=== PATIENT | female | born 1985 | race Hispanic/Latino ===

== ENCOUNTER 2017-01-03 01:20 | Emergency (ER) | payer MEDICAID ==
[2017-01-03 02:42] VITALS: BP 118/90
[2017-01-03 03:14] LABS: Hematocrit 46.1 % (30.3-42.9); Hemoglobin 15.5 gm/dl (10.1-14.3); Mean Corpuscular HGB Conc 34 % (30-34); Mean Corpuscular Hemoglobin 32 pg (28-32); Mean Corpuscular Volume 94 fl (79-97); Platelet Count 272 K/mm3 (140-440); Red Blood Count 4.92 M/mm3 (3.65-5.03); White Blood Count 13.8 K/mm3 (4.5-11.0)
[2017-01-03 03:31] LABS: Bilirubin,Urine NEG (Negative); Blood,Urine NEG (Negative); Ketones,Urine NEG (Negative); Leukocyte Esterase,Urine TR (Negative); Mucus,Urine FEW /HPF; Nitrite,Urine NEG (Negative); Protein,Urine <15 mg/dL mg/dL (Negative); RBC,Urine < 1.0 /HPF (0.0-6.0); Urobilinogen,Urine < 2.0 mg/dL (<2.0)
[2017-01-03 03:35] LABS: Alanine Aminotransferase 30 units/L (7-56); Albumin 4.6 g/dL (3.9-5); Albumin/Globulin Ratio 1.7 %; Alkaline Phosphatase 84 units/L (35-129); Anion Gap 18 mmol/L; BUN/Creatinine Ratio 13.33; Blood Urea Nitrogen 8 mg/dL (7-17); Calcium 9.4 mg/dL (8.4-10.2); Carbon Dioxide 23 mmol/L (22-30); Chloride 101.7 mmol/L (98-107); Glucose 90 mg/dL (65-100); Lipase 27 units/L (13-60); Potassium 4.3 mmol/L (3.6-5.0); Sodium 138 mmol/L (137-145); Total Protein 7.3 g/dL (6.3-8.2)
[2017-01-03 04:30] LABS: Basophils % (Manual) 0 % (0.0-1.8); Blastocytes % (Manual) 0 %; Diff Status Complete; Platelet Estimate Consistent w Auto; RBC Morphology Normal
== END 2017-01-03 17:45 | disposition left against medical advice (07) ==
LOC: ED 01:20
DX: R10.9 Unspecified abdominal pain (principal); M54.9 Dorsalgia, unspecified; Z53.21 Procedure and treatment not carried out due to patient leaving prior to being seen by health care provider
CPT/HCPCS: 36415; 80053; 81001; 83690; 84702; 85007; 85025; 86850; 86900; 86901

== ENCOUNTER 2017-04-28 20:07 | Emergency (ER) | payer MEDICAID ==
[2017-04-28 21:09] LABS: Bacteria,Urine 1+ /HPF (Negative); Bilirubin,Urine NEG (Negative); Blood,Urine NEG (Negative); Ketones,Urine NEG (Negative); Leukocyte Esterase,Urine NEG (Negative); Mucus,Urine FEW /HPF; Nitrite,Urine NEG (Negative); Protein,Urine <15 mg/dL mg/dL (Negative); RBC,Urine < 1.0 /HPF (0.0-6.0); Urobilinogen,Urine < 2.0 mg/dL (<2.0); WBC,Urine < 1.0 /HPF (0.0-6.0)
[2017-04-28 21:11] LABS: Urine Drugs of Abuse Note Disclamer
[2017-04-28] MEDS ORDERED: ZOFRAN IV ONE (21:12)
[2017-04-28 21:13] LABS: Basophils % (Auto) 0.4 % (0.0-1.8); Eosinophils % (Auto) 1.3 % (0.0-4.3); Hematocrit 39.9 % (30.3-42.9); Hemoglobin 13.5 gm/dl (10.1-14.3); Mean Corpuscular HGB Conc 34 % (30-34); Mean Corpuscular Hemoglobin 32 pg (28-32); Mean Corpuscular Volume 95 fl (79-97); Platelet Count 239 K/mm3 (140-440); Red Blood Count 4.21 M/mm3 (3.65-5.03); Red Cell Distribution Width 12.7 % (13.2-15.2); White Blood Count 10.6 K/mm3 (4.5-11.0)
[2017-04-28] MEDS ORDERED: MORPHINE IV ONE ×2 (21:13→23:34)
[2017-04-28] MEDS ORDERED: TORADOL IV ONE (21:13)
--- NOTE | 2017-04-28 21:16 | Emergency Department Report ---
HPI - General Chief Complaint: Abdominal Pain Time Seen by Provider: 04/28/17 20:59 - HPI HPI: Room 8 Patient is a 31-year-old female presenting with chief complaint abdominal pain. The patient states past 5 days she has had pain in the left flank and left lower quadrant has been constant and sharp in nature. Patient states she's had difficulty urinating since last night. The patient is to nausea and vomiting but denies fever. Patient denies vaginal discharge or abnormal vaginal bleeding. The patient currently gives her pain score of 9/10. The patient states it feels similar to previous bouts of renal colic Location: Left flank Duration: 5 days Quality: Sharp Severity: 9/10 Modifying factors: [see above] Context: [see above] Mode of transportation: [not driving] ED Past Medical Hx - Past Medical History Previous Medical History?: Yes Hx Kidney Stones: Yes Additional medical history: Left ovarian cyst. endometreosis. mvp - Surgical History Past Surgical History?: Yes Additional Surgical History: cyst removed, ablation for Mitral valve prolapse - Family History Family history: no significant - Social History Smoking Status: Current Every Day Smoker (4 cigarettes daily) Substance Use Type: None (denies illicit drug use), Prescribed - Medications Home Medications: Home Medications Medication Instructions Recorded Confirmed Last Taken Type Hydrocodone Bit/Acetaminophen 1 each PO Q6H PRN #20 tablet 06/22/13 11/14/1311/07 Rx [Lortab 10-500 mg] HYDROcodone/APAP 5-325 [[place] 2 each PO Q6HR PRN #30 tablet 11/28/13 Unknown Rx 5/325 mg] traMADol [Ultram 50 MG tab] 50 mg PO Q6HR PRN #20 tablet 08/04/14 Unknown Rx Fluticasone [Flonase] 1 spray NS QDAY #1 bottle 10/29/16 Unknown Rx Naproxen [Naprosyn] 500 mg PO BID #30 tablet 10/29/16 Unknown Rx Ondansetron [Zofran Odt] 4 mg PO TID #21 tab.rapdis 10/29/16 Unknown Rx Sulfamethoxazole/Trimethoprim 1 each PO BID #6 tablet 10/29/16 Unknown Rx [Bactrim DS TAB] methOCARBAMOL [Robaxin TAB] 500 mg PO Q6H PRN #14 tablet 10/29/16 Unknown Rx Doxycycline [Vibramycin CAP] 100 mg PO BID #20 capsule 11/01/16 Unknown Rx Promethazine [Phenergan TAB] 25 mg PO Q8HR PRN #20 tab 11/01/16 Unknown Rx Diphenoxylate HCl/Atropine 2 each PO QID PRN #20 tablet 04/28/17 Unknown Rx [Lomotil 2.5-0.025 mg Tablet] Famotidine [Pepcid] 20 mg PO BID #20 tablet 04/28/17 Unknown Rx Promethazine [Phenergan TAB] 25 mg PO Q6HR PRN #20 tab 04/28/17 Unknown Rx Promethazine [Phenergan] 25 mg NC Q6HR PRN #10 supp.rect 04/28/17 Unknown Rx traMADol [Ultram] 50 mg PO Q6HR PRN #10 tablet 04/28/17 Unknown Rx ED Review of Systems ROS: Stated complaint: ABD PAIN Other details as noted in HPI Comment: All other systems reviewed and negative Eyes: denies: eye pain, eye discharge, vision change ENT: denies: ear pain, throat pain Respiratory: denies: cough, shortness of breath, wheezing Cardiovascular: denies: chest pain, palpitations Endocrine: no symptoms reported Gastrointestinal: abdominal pain, nausea, vomiting, diarrhea Genitourinary: denies: urgency, dysuria, discharge Musculoskeletal: back pain. denies: joint swelling, arthralgia Skin: denies: rash, lesions Neurological: denies: headache, weakness, paresthesias Psychiatric: denies: anxiety, depression Hematological/Lymphatic: denies: easy bleeding, easy bruising Physical Exam - Physical Exam Vital Signs: Vital Signs 04/28/17 20:35 Temperature 98.1 F Pulse Rate 97 H Respiratory 20 Rate Blood Pressure 140/101 O2 Sat by Pulse 100 Oximetry Physical Exam: GENERAL: The patient is well-developed well-nourished female lying on stretcher not appearing to be in acute distress. [] HEENT: Normocephalic. Atraumatic. Extraocular motions are intact. Patient has moist mucous membranes. NECK: Supple. Trachea midline CHEST/LUNGS: Clear to auscultation. There is no respiratory distress noted. HEART/CARDIOVASCULAR: Regular. There is no tachycardia. There is no gallop rub or murmur. ABDOMEN: Abdomen is soft, with tenderness to palpation in the left upper quadrant, left lower quadrant and suprapubic region. Patient has normal bowel sounds. There is no abdominal distention. SKIN: There is no rash. There is no edema. There is no diaphoresis. NEURO: The patient is awake, alert, and oriented. The patient is cooperative. The patient has normal speech MUSCULOSKELETAL: There is left CVA tenderness. There is no evidence of acute injury. ED Course Vital Signs 04/28/17 20:35 Temperature 98.1 F Pulse Rate 97 H Respiratory 20 Rate Blood Pressure 140/101 O2 Sat by Pulse 100 Oximetry ED Medical Decision Making - Lab Data Result diagrams: 04/28/17 20:50 04/28/17 20:50 Laboratory Tests 04/28/17 04/28/17 04/28/17 20:39 20:50 20:50 WBC 10.6 RBC 4.21 Hgb 13.5 Hct 39.9 MCV 95 MCH 32 MCHC 34 RDW 12.7 L Plt Count 239 Lymph % (Auto) 36.8 H [place] % (Auto) 8.1 H Eos % (Auto) 1.3 Baso % (Auto) 0.4 Lymph # 3.9 [place] # 0.9 H Eos # 0.1 Baso # 0.0 Seg Neutrophils % 53.4 Seg Neutrophils # 5.7 Sodium 136 L Potassium 4.2 Chloride 103.9 Carbon Dioxide 19 L Anion Gap 17 BUN 9 Creatinine 0.6 L Estimated GFR > 60 BUN/Creatinine Ratio 15.00 Glucose 83 Calcium 8.3 L Total Bilirubin 0.20 AST 20 ALT 28 Alkaline Phosphatase 73 Total Protein 6.5 Albumin 3.6 L Albumin/Globulin Ratio 1.2 Lipase 30 HCG, Qual Urine Color Yellow Urine Turbidity Clear Urine pH 5.0 Ur Specific [place] 1.025 Urine Protein <15 mg/dl Urine Glucose (UA) Neg Urine Ketones Neg Urine Blood Neg Urine Nitrite Neg Urine Bilirubin Neg Urine Urobilinogen < 2.0 Ur Leukocyte Esterase Neg Urine WBC (Auto) < 1.0 Urine RBC (Auto) < 1.0 Urine Bacteria (Auto) 1+ Urine Mucus Few Urine Opiates Screen Urine Methadone Screen Ur Barbiturates Screen Ur Phencyclidine Scrn Ur Amphetamines Screen U Benzodiazepines Scrn Urine Cocaine Screen U Marijuana (THC) Screen Drugs of Abuse Note 04/28/17 04/28/17 20:50 21:08 WBC RBC Hgb Hct MCV MCH MCHC RDW Plt Count Lymph % (Auto) [place] % (Auto) Eos % (Auto) Baso % (Auto) Lymph # [place] # Eos # Baso # Seg Neutrophils % Seg Neutrophils # Sodium Potassium Chloride Carbon Dioxide Anion Gap BUN Creatinine Estimated GFR BUN/Creatinine Ratio Glucose Calcium Total Bilirubin AST ALT Alkaline Phosphatase Total Protein Albumin Albumin/Globulin Ratio Lipase HCG, Qual Negative Urine Color Urine Turbidity Urine pH Ur Specific [place] Urine Protein Urine Glucose (UA) Urine Ketones Urine Blood Urine Nitrite Urine Bilirubin Urine Urobilinogen Ur Leukocyte Esterase Urine WBC (Auto) Urine RBC (Auto) Urine Bacteria (Auto) Urine Mucus Urine Opiates Screen Presumptive positive Urine Methadone Screen Presumptive negative Ur Barbiturates Screen Presumptive negative Ur Phencyclidine Scrn Presumptive negative Ur Amphetamines Screen Presumptive negative U Benzodiazepines Scrn Presumptive positive Urine Cocaine Screen Presumptive negative U Marijuana (THC) Screen Presumptive negative Drugs of Abuse Note Disclamer - Radiology Data Radiology results: report reviewed (CT abdomen and pelvis), image reviewed (CT abdomen and pelvis) CT abdomen and pelvis (read by radiologist)-no acute intra-abdominal or pelvic pathology - Differential Diagnosis renal colic, pyelonephritis, UTI, diverticulitis Critical care attestation.: If time is entered above; I have spent that time in minutes in the direct care of this critically ill patient, excluding procedure time. ED Disposition Clinical Impression: Acute gastroenteritis, Abdominal pain Disposition: [id number] TO HOME OR SELFCARE Is pt being admited?: No Does the pt Need Aspirin: No Condition: Stable Instructions: Abdominal Pain (ED) Additional Instructions: Return to the emergency department immediately should you develop worsening symptoms, fever, inability to tolerate food or liquid or any other concerns. Prescriptions: Diphenoxylate HCl/Atropine [Lomotil 2.5-0.025 mg Tablet] 2 each PO QID PRN #20 tablet PRN Reason: Diarrhea Famotidine [Pepcid] 20 mg PO BID #20 tablet Promethazine [Phenergan TAB] 25 mg PO Q6HR PRN #20 tab PRN Reason: Nausea Promethazine [Phenergan] 25 mg NC Q6HR PRN #10 supp.rect PRN Reason: Vomiting traMADol [Ultram] 50 mg PO Q6HR PRN #10 tablet PRN Reason: Pain Referrals: PRIMARY CARE, [Primary Care Provider] - 3-5 Days MARIA ELENA RODRIGUEZ MD [Staff Physician] - 3-5 Days (Dr. Rodriguez is a master steam yacht. Please follow up with him for further evaluation) Time of Disposition: 23:36
[2017-04-28 21:22] LABS: Alanine Aminotransferase 28 units/L (7-56); Albumin 3.6 g/dL (3.9-5); Albumin/Globulin Ratio 1.2 %; Alkaline Phosphatase 73 units/L (35-129); Anion Gap 17 mmol/L; Blood Urea Nitrogen 9 mg/dL (7-17); Calcium 8.3 mg/dL (8.4-10.2); Carbon Dioxide 19 mmol/L (22-30); Chloride 103.9 mmol/L (98-107); Glucose 83 mg/dL (65-100); Lipase 30 units/L (13-60); Potassium 4.2 mmol/L (3.6-5.0); Sodium 136 mmol/L (137-145); Total Protein 6.5 g/dL (6.3-8.2)
--- NOTE | 2017-04-28 22:26 | Cat Scan Report ---
FINAL REPORT PROCEDURE: CT ABDOMEN PELVIS WO CON TECHNIQUE: Computerized axial tomography of the abdomen and pelvis was performed without intravenous contrast. This study is performed without intravascular contrast material and its sensitivity for abdominal and pelvic pathology, including neoplasms, inflammation, abscess, free fluid, thrombosis, arterial dissection and infarction, is reduced compared with a contrast enhanced study. HISTORY: left flank pain COMPARISON: No prior studies are available for comparison. FINDINGS: Visualized lower thorax: No significant abnormality. Liver: Normal size and attenuation. Spleen: Normal size and attenuation. Gallbladder and biliary system: Normal. Pancreas: Normal. Adrenals: Normal. Kidneys: Normal. GI tract: Normal. Appendix is normal. Lymph nodes and mesentery: Normal. Vasculature: Normal. Bladder: Normal. Reproductive organs: Uterus is retroverted. Peritoneum: No free fluid. Musculoskeletal structures: Bilateral spondylolysis is noted. Other: A small uncomplicated umbilical hernia is noted. IMPRESSION: No acute intra-abdominal or pelvic pathology.
[2017-04-28] MEDS ORDERED: REGLAN IV ONE (23:34)
[2017-04-29 00:35] VITALS: BP 120/70
== END 2017-04-29 00:37 | disposition home or self-care (01) ==
LOC: ED 20:07
DX: K52.9 Noninfective gastroenteritis and colitis, unspecified (principal); F17.200 Nicotine dependence, unspecified, uncomplicated; R39.198 Other difficulties with micturition
CPT/HCPCS: 36415; 51701; 74176; 80053; 80307; 81001; 83690; 84703; 85025; 96374; 96375; 96376; 99284; J1885; J2270; J2405; J2765

== ENCOUNTER 2019-06-05 16:46 | Emergency (ER) | payer MEDICAID ==
--- NOTE | 2019-06-05 17:15 | Event Note ---
ED Screening Note Date of service: 06/05/19 Time: 17:13 ED Screening Note: 33 y/o female comes in for low back pain and abdominal with urnary frequency and urgency and dysuria times 1 week. Pain /. LMP Depo This initial assessment/diagnostic orders/clinical plan/treatment(s) is/are sub ject to change based on patients health status, clinical progression and re- assessment by fellow clinical providers in the ED. Further treatment and workup at subsequent clinical providers discretion. Patient/guardian urged not to elope from the ED as their condition may be serious if not clinically assessed and managed. Initial orders include:
[2019-06-05] MEDS ORDERED: ONDANSETRON 4 MG ODT TAB PO ONE (17:41)
[2019-06-05] MEDS ORDERED: CYCLOBENZAPRINE 10 MG TAB PO ONE (17:41)
--- NOTE | 2019-06-05 17:51 | Emergency Department Report ---
ED Female HPI - General Chief complaint: Abdominal Pain Stated complaint: ABD/BACK PAIN Time Seen by Provider: 06/05/19 17:13 Source: patient Mode of arrival: Ambulatory Limitations: No Limitations - History of Present Illness Initial comments: Patient is a 33-year-old female presents emergency room with complaints of lower back and suprapubic abdominal discomfort that began a week ago. She has associated urinary frequency and pressure upon urinating. Denies any vomiting, diarrhea, chills, fever, vaginal discharge. States that she is on Depo-Provera as control. denies any allergies to medications. - Related Data Previous Rx's Medication Instructions Recorded Last Taken Type Hydrocodone Bit/Acetaminophen 1 each PO Q6H PRN #20 tablet 06/22/13 11/27/13 Rx [Lortab 10-500 mg] HYDROcodone/APAP 5-325 [[place] 2 each PO Q6HR PRN #30 tablet 11/28/13 Unknown Rx 5/325 mg] traMADol [Ultram 50 MG tab] 50 mg PO Q6HR PRN #20 tablet 08/04/14 Unknown Rx Fluticasone [Flonase] 1 spray NS QDAY #1 bottle 10/29/16 Unknown Rx Naproxen [Naprosyn] 500 mg PO BID #30 tablet 10/29/16 Unknown Rx Ondansetron [Zofran Odt] 4 mg PO TID #21 tab.rapdis 10/29/16 Unknown Rx Sulfamethoxazole/Trimethoprim 1 each PO BID #6 tablet 10/29/16 Unknown Rx [Bactrim DS TAB] methOCARBAMOL [Robaxin TAB] 500 mg PO Q6H PRN #14 tablet 10/29/16 Unknown Rx DOXYCYCLINE Hyclate [Vibramycin 100 mg PO BID #20 capsule 11/01/16 Unknown Rx CAP] Promethazine [Phenergan TAB] 25 mg PO Q8HR PRN #20 tab 11/01/16 Unknown Rx Diphenoxylate HCl/Atropine 2 each PO QID PRN #20 tablet 04/28/17 Unknown Rx [Lomotil 2.5-0.025 mg Tablet] Famotidine [Pepcid] 20 mg PO BID #20 tablet 04/28/17 Unknown Rx Promethazine [Phenergan TAB] 25 mg PO Q6HR PRN #20 tab 09/02/17 Unknown Rx Promethazine [Phenergan] 25 mg [place] Q6HR PRN #10 supp.rect 04/28/17 Unknown Rx traMADol [Ultram] 50 mg PO Q6HR PRN #10 tablet 04/28/17 Unknown Rx Cyclobenzaprine [Flexeril] 10 mg PO QHS PRN #10 tablet 06/05/19 Unknown Rx Naproxen [EC-Naproxen] 500 mg PO BID PRN #14 tablet. 06/05/19 Unknown Rx Allergies Allergy/AdvReac Type Severity Reaction Status Date / Time No Known Allergies Allergy Verified 08/16/13 17:39 ED Review of Systems ROS: Stated complaint: ABD/BACK PAIN Other details as noted in HPI Comment: All other systems reviewed and negative ED Past Medical Hx - Past Medical History Previous Medical History?: Yes Hx Kidney Stones: Yes Additional medical history: Left ovarian cyst. endometreosis. mvp - Surgical History Past Surgical History?: Yes Additional Surgical History: cyst removed, ablation for Mitral valve prolapse - Social History Smoking Status: Current Every Day Smoker Substance Use Type: None - Medications Home Medications: Home Medications Medication Instructions Recorded Confirmed Last Taken Type Hydrocodone Bit/Acetaminophen 1 each PO Q6H PRN #20 tablet 06/22/13 11/14/13 11/27/13 Rx [Lortab 10-500 mg] HYDROcodone/APAP 5-325 [[place] 2 each PO Q6HR PRN #30 tablet 11/28/13 Unknown Rx 5/325 mg] traMADol [Ultram 50 MG tab] 50 mg PO Q6HR PRN #20 tablet 08/04/14 Unknown Rx Fluticasone [Flonase] 1 spray NS QDAY #1 bottle 10/29/16 Unknown Rx Naproxen [Naprosyn] 500 mg PO BID #30 tablet 10/29/16 Unknown Rx Ondansetron [Zofran Odt] 4 mg PO TID #21 tab.rapdis 10/29/16 Unknown Rx Sulfamethoxazole/Trimethoprim 1 each PO BID #6 tablet 10/29/16 Unknown Rx [Bactrim DS TAB] methOCARBAMOL [Robaxin TAB] 500 mg PO Q6H PRN #14 tablet 10/29/16 Unknown Rx DOXYCYCLINE Hyclate [Vibramycin 100 mg PO BID #20 capsule 11/01/16 Unknown Rx CAP] Promethazine [Phenergan TAB] 25 mg PO Q8HR PRN #20 tab 11/01/16 Unknown Rx Diphenoxylate HCl/Atropine 2 each PO QID PRN #20 tablet 04/28/17 Unknown Rx [Lomotil 2.5-0.025 mg Tablet] Famotidine [Pepcid] 20 mg PO BID #20 tablet 04/28/17 Unknown Rx Promethazine [Phenergan TAB] 25 mg PO Q6HR PRN #20 tab 04/28/17 Unknown Rx Promethazine [Phenergan] 25 mg [place] Q6HR PRN #10 supp.rect 04/28/17 Unknown Rx traMADol [Ultram] 50 mg PO Q6HR PRN #10 tablet 04/28/17 Unknown Rx Cyclobenzaprine [Flexeril] 10 mg PO QHS PRN #10 tablet 06/05/19 Unknown Rx Naproxen [EC-Naproxen] 500 mg PO BID PRN #14 tablet.dr 06/05/19 Unknown Rx ED Physical Exam - General Limitations: No Limitations General appearance: alert, in no apparent distress - Head Head exam: Present: atraumatic, normocephalic - Eye Eye exam: Present: normal appearance - ENT ENT exam: Present: mucous membranes moist - Respiratory Respiratory exam: Present: normal lung sounds bilaterally. Absent: respiratory distress, wheezes, rales, rhonchi, stridor, chest wall tenderness, accessory muscle use, decreased breath sounds, prolonged expiratory - Cardiovascular Cardiovascular Exam: Present: regular rate, normal rhythm, normal heart sounds. Absent: systolic murmur, diastolic murmur, rubs, gallop - GI/Abdominal GI/Abdominal exam: Present: soft, normal bowel sounds. Absent: distended, tenderness, guarding, rebound, rigid - External exam: Present: other (pt deferred pelvic examination) - Back Exam Back exam: Absent: CVA tenderness (R), CVA tenderness (L) - Neurological Exam Neurological exam: Present: alert, oriented X3 - Psychiatric Psychiatric exam: Present: normal affect, normal mood - Skin Skin exam: Present: warm, dry, intact ED Course Vital Signs 06/05/19 06/05/19 06/06/19 17:13 19:25 02:33 Temperature 98.2 F Pulse Rate 124 H 96 H Respiratory 18 16 16 Rate Blood Pressure 144/96 Blood Pressure 128/88 [Right] O2 Sat by Pulse 94 100 Oximetry ED Medical Decision Making - Lab Data Lab Results 06/05/19 Range/Units Unknown Urine Color Yellow (Yellow) Urine Turbidity Slightly-cloudy (Clear) Urine pH 7.0 (5.0-7.0) Ur Specific [place] 1.016 (1.003-1.030) Urine Protein <15 mg/dl (Negative) mg/dL Urine Glucose (UA) Neg (Negative) mg/dL Urine Ketones Neg (Negative) mg/dL Urine Blood Neg (Negative) Urine Nitrite Neg (Negative) Urine Bilirubin Neg (Negative) Urine Urobilinogen < 2.0 (<2.0) mg/dL Ur Leukocyte Esterase Neg (Negative) Urine WBC (Auto) < 1.0 (0.0-6.0) /HPF Urine RBC (Auto) 3.0 (0.0-6.0) /HPF U Epithel Cells (Auto) 11.0 (0-13.0) /HPF Amorphous Crystals Few Urine HCG, Qual Negative (Negative) - Medical Decision Making Patient is a 33-year-old female presents emergency room with complaints of lower back and suprapubic abdominal discomfort that began a week ago. She has associated urinary frequency and pressure upon urinating. Denies any vomiting, diarrhea, chills, fever, vaginal discharge. States that she is on Depo-Provera as control. denies any allergies to medications. initial vitals in triage with tachycardia which improved upon repeat. no abd tenderness or CVAT on exam, no peritoneal signs, bowel sounds are normal. UA is normal, urine preg is negative. Discussed with the patient that we would need to do a pelvic examination due to her symptoms and patient declined she states that she would like to see her [facility] [facility] and said to have this performed. she states that she does have an [employer] which she follows up with regularly and she can make an appointment with them. pt given anti-inflammatory and muscle relaxer. advised pt to please medication as prescribed as needed. Do not drive or operate machinery while taking muscle relaxer. please follow-up with your [facility] and a primary care doctor in the next 2-3 days for further examination. Return to the emergency room for any new or worsening symptoms. Critical care attestation.: If time is entered above; I have spent that time in minutes in the direct care of this critically ill patient, excluding procedure time. ED Disposition Clinical Impression: Suprapubic abdominal pain, Urinary frequency Lower back pain Qualifiers: Chronicity: acute Back pain laterality: bilateral Sciatica presence: without sciatica Qualified Code(s): M54.5 - Low back pain Disposition: TO HOME OR SELFCARE Is pt being admited?: No Does the pt Need Aspirin: No Condition: Stable Instructions: Acute Low Back Pain (ED), Abdominal Pain (ED) Additional Instructions: please medication as prescribed as needed. Do not drive or operate machinery while taking muscle relaxer. please follow-up with your [facility] [facility] and a primary care doctor in the next 2-3 days for further examination. Return to the emergency room for any new or worsening symptoms. Prescriptions: Cyclobenzaprine [Flexeril] 10 mg PO QHS PRN #10 tablet PRN Reason: Muscle Spasm Naproxen [EC-Naproxen] 500 mg PO BID PRN #14 tablet. PRN Reason: pain Referrals: your, primary care doctor [Other] - 2-3 Days your, [facility] [facility] [Other] - 2-3 Days Time of Disposition: 18:57 Print Language: DOMINICAN
[2019-06-05 18:46] LABS: Amorphous Crystals,Urine Few; Bilirubin,Urine NEG (Negative); Blood,Urine NEG (Negative); Color,Urine Yellow (Yellow); Protein,Urine <15 mg/dL mg/dL (Negative); Urobilinogen,Urine < 2.0 mg/dL (<2.0)
[2019-06-05 18:47] LABS: HCG Qualitative,Urine Negative (Negative); WBC,Urine < 1.0 /HPF (0.0-6.0)
[2019-06-05] MEDS ORDERED: KETOROLAC 60 MG/2 ML INJ IM ONE (19:00)
[2019-06-06 02:35] VITALS: BP 128/88
== END 2019-06-05 19:25 | disposition home or self-care (01) ==
LOC: ED 16:46
DX: M54.5 Low back pain (principal); R10.30 Lower abdominal pain, unspecified; R35.0 Frequency of micturition; F17.200 Nicotine dependence, unspecified, uncomplicated
CPT/HCPCS: 81001; 81025; 96372; 99283; J1885; Q0162

== ENCOUNTER 2020-04-18 13:08 | Emergency (ER) | payer MEDICAID ==
[2020-04-18] MEDS ORDERED: SODIUM CHLORIDE 0.9% 1000 ML 1,000 ML IV ONE (13:22)
[2020-04-18] MEDS ORDERED: MORPHINE 4 MG/1 ML INJ IV ONE (13:22)
[2020-04-18] MEDS ORDERED: ONDANSETRON 4 MG/2 ML INJ IV ONE (13:22)
--- NOTE | 2020-04-18 13:26 | Emergency Department Report ---
ED Abdominal Pain HPI - General Chief Complaint: Abdominal Pain Stated Complaint: BACK AND SIDE PAIN Time Seen by Provider: 04/18/20 13:15 Source: patient Mode of arrival: Ambulatory Limitations: No Limitations - History of Present Illness Initial Comments: Patient is 34 years old female with past medical history of borderline diabetes. Patient presented to the ER complaining of left flank pain. Patient stated the symptoms started 3 weeks ago on and off but for the last 2 to 3 days became more worse. Patient also complaining of increased urinary frequency. Patient denied any nausea or vomiting. No vaginal bleeding or vaginal discharge. Patient denied any chest pain or shortness of breath. MD Complaint: abdominal pain -: days(s) Location: L flank Radiation: suprapubic Migration to: no migration Severity scale (0 -10): 10 Quality: sharp - Related Data Previous Rx's Medication Instructions Recorded Last Taken Type Hydrocodone Bit/Acetaminophen 1 each PO Q6H PRN #20 tablet 06/22/13 11/27/13 Rx [Lortab 10-500 mg] HYDROcodone/APAP 5-325 [[place] 2 each PO Q6HR PRN #30 tablet 11/28/13 Unknown Rx 5/325 mg] traMADoL [Ultram 50 MG tab] 50 mg PO Q6HR PRN #20 tablet 08/04/14 Unknown Rx Fluticasone [Flonase] 1 spray NS QDAY #1 bottle 10/29/16 Unknown Rx Naproxen [Naprosyn] 500 mg PO BID #30 tablet 10/29/16 Unknown Rx Ondansetron [Zofran Odt] 4 mg PO TID #21 tab.rapdis 10/29/16 Unknown Rx Sulfamethoxazole/Trimethoprim 1 each PO BID #6 tablet 10/29/16 Unknown Rx [Bactrim DS TAB] methOCARBAMOL [Robaxin TAB] 500 mg PO Q6H PRN #14 tablet 10/29/16 Unknown Rx DOXYCYCLINE Hyclate [Vibramycin 100 mg PO BID #20 capsule 11/01/16 Unknown Rx CAP] Promethazine [Phenergan TAB] 25 mg PO Q8HR PRN #20 tab 11/01/16 Unknown Rx Diphenoxylate HCl/Atropine 2 each PO QID PRN #20 tablet 04/28/17 Unknown Rx [Lomotil 2.5-0.025 mg Tablet] Famotidine [Pepcid] 20 mg PO BID #20 tablet 04/28/17 Unknown Rx Promethazine [Phenergan TAB] 25 mg PO Q6HR PRN #20 tab 04/28/17 Unknown Rx Promethazine [Phenergan] 25 mg NE Q6HR PRN #10 supp.rect 04/28/17 Unknown Rx traMADoL [Ultram] 50 mg PO Q6HR PRN #10 tablet 04/28/17 Unknown Rx Cyclobenzaprine [Flexeril] 10 mg PO QHS PRN #10 tablet 06/05/19 Unknown Rx Naproxen [EC-Naproxen] 500 mg PO BID PRN #14 tablet.dr 06/05/19 Unknown Rx Allergies Allergy/AdvReac Type Severity Reaction Status Date / Time No Known Allergies Allergy Verified 08/16/13 17:39 ED Review of Systems ROS: Stated complaint: BACK AND SIDE PAIN Other details as noted in HPI Comment: All other systems reviewed and negative Constitutional: denies: chills, fever Respiratory: denies: cough, shortness of breath, SOB with exertion, SOB at rest, wheezing Cardiovascular: denies: chest pain Gastrointestinal: abdominal pain. denies: nausea, vomiting, diarrhea, constip ation, hematemesis, melena, hematochezia Musculoskeletal: denies: back pain Neurological: denies: headache, weakness, numbness, paresthesias, confusion ED Past Medical Hx - Past Medical History Previous Medical History?: Yes Hx Kidney Stones: Yes Additional medical history: Left ovarian cyst. endometreosis. mvp - Surgical History Past Surgical History?: Yes Additional Surgical History: cyst removed, ablation for Mitral valve prolapse - Social History Smoking Status: Current Every Day Smoker Substance Use Type: None - Medications Home Medications: Home Medications Medication Instructions Recorded Confirmed Last Taken Type Hydrocodone Bit/Acetaminophen 1 each PO Q6H PRN #20 tablet 06/22/13 11/14/13 11/27/13 Rx [Lortab 10-500 mg] HYDROcodone/APAP 5-325 [[place] 2 each PO Q6HR PRN #30 tablet 11/28/13 Unknown Rx 5/325 mg] traMADoL [Ultram 50 MG tab] 50 mg PO Q6HR PRN #20 tablet 08/04/14 Unknown Rx Fluticasone [Flonase] 1 spray NS QDAY #1 bottle 10/29/16 Unknown Rx Naproxen [Naprosyn] 500 mg PO BID #30 tablet 10/29/16 Unknown Rx Ondansetron [Zofran Odt] 4 mg PO TID #21 tab.rapdis 10/29/16 Unknown Rx Sulfamethoxazole/Trimethoprim 1 each PO BID #6 tablet 10/29/16 Unknown Rx [Bactrim DS TAB] methOCARBAMOL [Robaxin TAB] 500 mg PO Q6H PRN #14 tablet 10/29/16 Unknown Rx DOXYCYCLINE Hyclate [Vibramycin 100 mg PO BID #20 capsule 11/01/16 Unknown Rx CAP] Promethazine [Phenergan TAB] 25 mg PO Q8HR PRN #20 tab 11/01/16 Unknown Rx Diphenoxylate HCl/Atropine 2 each PO QID PRN #20 tablet 04/28/17 Unknown Rx [Lomotil 2.5-0.025 mg Tablet] Famotidine [Pepcid] 20 mg PO BID #20 tablet 04/28/17 Unknown Rx Promethazine [Phenergan TAB] 25 mg PO Q6HR PRN #20 tab 04/28/17 Unknown Rx Promethazine [Phenergan] 25 mg NE Q6HR PRN #10 supp.rect 04/28/17 Unknown Rx traMADoL [Ultram] 50 mg PO Q6HR PRN #10 tablet 04/28/17 Unknown Rx Cyclobenzaprine [Flexeril] 10 mg PO QHS PRN #10 tablet 06/05/19 Unknown Rx Naproxen [EC-Naproxen] 500 mg PO BID PRN #14 tablet.dr 06/05/19 Unknown Rx ED Physical Exam - General Limitations: No Limitations General appearance: alert, in distress (Moderate secondary to pain.) - Head Head exam: Present: atraumatic, normocephalic, normal inspection - ENT ENT exam: Present: normal exam, normal orophraynx, mucous membranes moist - Neck Neck exam: Present: normal inspection, full ROM. Absent: tenderness, meningismus - Respiratory Respiratory exam: Present: normal lung sounds bilaterally - Cardiovascular Cardiovascular Exam: Present: regular rate, normal rhythm, normal heart sounds - GI/Abdominal GI/Abdominal exam: Present: soft, normal bowel sounds. Absent: distended, tenderness, guarding, rebound, rigid, organomegaly, mass, bruit, pulsatile mass, hernia - Extremities Exam Extremities exam: Present: normal inspection, full ROM, normal capillary refill. Absent: pedal edema, calf tenderness - Back Exam Back exam: Present: normal inspection, full ROM, CVA tenderness (L). Absent: CVA tenderness (R), muscle spasm, paraspinal tenderness, vertebral tenderness - Neurological Exam Neurological exam: Present: alert, oriented X3, CN II-XII intact, normal gait - Psychiatric Psychiatric exam: Present: normal mood - Skin Skin exam: Present: warm, intact, normal color ED Course Vital Signs 04/18/20 04/18/20 04/18/20 13:31 13:37 13:45 Temperature 98.6 F Pulse Rate 110 H 110 H Respiratory 18 16 19 Rate Blood Pressure 130/86 Blood Pressure 130/86 [Left] O2 Sat by Pulse 96 98 98 Oximetry 04/18/20 14:15 Temperature Pulse Rate 100 H Respiratory 10 L Rate Blood Pressure 128/86 Blood Pressure [Left] O2 Sat by Pulse 97 Oximetry ED Medical Decision Making - Lab Data Result diagrams: 04/18/20 13:38 04/18/20 13:38 - Radiology Data Radiology results: report reviewed - Medical Decision Making Patient is 34 years old female with past medical history of borderline diabetes. Patient presented to the ER complaining of left flank pain. Patient stated the symptoms started 3 weeks ago on and off but for the last 2 to 3 days became more worse. Patient also complaining of increased urinary frequency. Patient denied any nausea or vomiting. No vaginal bleeding or vaginal discharge. Patient denied any chest pain or shortness of breath. Patient received morphine and Zofran and normal saline. Patient stated that she is feeling much better. Labs reviewed and is unremarkable. CT abdomen and pelvis is negative for acute finding. Patient given prescription for Naprosyn and Flexeril and advised to follow-up with her primary care physician in the next 2 to 3 days and to return to the ER if she develop any new symptoms. Critical care attestation.: If time is entered above; I have spent that time in minutes in the direct care of this critically ill patient, excluding procedure time. ED Disposition Clinical Impression: Left flank pain Disposition: DC-01 TO HOME OR SELFCARE Is pt being admited?: No Condition: Stable Instructions: Abdominal Pain (ED), Flank Pain (ED) Referrals: [facility] [Provider Group] - 3-5 Days
[2020-04-18 13:47] LABS: HCG Qualitative,Urine Negative (Negative)
[2020-04-18 13:53] LABS: Bacteria,Urine 2+ /HPF (Negative); Bilirubin,Urine NEG (Negative); Blood,Urine NEG (Negative); Color,Urine Yellow (Yellow); Mucus,Urine 1+ /HPF; Urobilinogen,Urine < 2.0 mg/dL (<2.0)
[2020-04-18 14:18] LABS: Hematocrit 42.6 % (30.3-42.9); Hemoglobin 14.6 gm/dl (10.1-14.3); Mean Corpuscular HGB Conc 34 % (30-34); Mean Corpuscular Volume 97 fl (79-97); Platelet Count 231 K/mm3 (140-440); Red Blood Count 4.38 M/mm3 (3.65-5.03); Red Cell Distribution Width 12.6 % (13.2-15.2)
[2020-04-18 14:24] LABS: Blood Urea Nitrogen 8 mg/dL (7-17); Calcium 8.9 mg/dL (8.4-10.2); Hemolysis Index 15
[2020-04-18 14:25] LABS: BUN/Creatinine Ratio 20
--- NOTE | 2020-04-18 15:41 | Cat Scan Report ---
CT ABDOMEN AND PELVIS WITH IV CONTRAST INDICATION: Abdominal pain, left flank pain.. COMPARISON: None available. TECHNIQUE: All CT scans at this facility use dose modulation, automated exposure control, iterative reconstructi on or weight based dosing, when appropriate, to reduce radiation dose to as low as reasonably achieva ble. FINDINGS: Lung Bases: No significant abnormality. Skeletal System: No acute abnormality. 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 ABDOMEN: Liver: No significant abnormality. Gallbladder: No significant abnormality. Bile Ducts: No significant abnormality. Pancreas: No significant abnormality. Spleen: No significant abnormality. Adrenals: No significant abnormality. Right Kidney: No significant abnormality. Left Kidney: No significant abnormality. Upper GI tract: No significant abnormality. Lymph Nodes: No significant adenopathy. Aorta: No significant abnormality. Additional Findings: Tiny fat-containing umbilical hernia unchanged. PELVIS: Colon: No acute abnormality. Urinary Bladder and Distal Ureters: No significant abnormality. Appendix: No significant abnormality. Lymph Nodes: No significant adenopathy. Additional Findings: None. IMPRESSION: 1. No acute process in the abdomen or pelvis. 2. Incidental findings, as above. Signer Name: Willie Daniels MD Signed: 04/18/2020 3:37 PM Workstation Name: [id number]
[2020-04-18 16:21] VITALS: BP 112/68
== END 2020-04-18 16:30 | disposition home or self-care (01) ==
LOC: ED 13:08
DX: R10.2 Pelvic and perineal pain (principal); R35.0 Frequency of micturition; F17.200 Nicotine dependence, unspecified, uncomplicated; Z87.442 Personal history of urinary calculi; Z98.890 Other specified postprocedural states; Z79.899 Other long term (current) drug therapy
CPT/HCPCS: 36415; 74177; 80048; 81001; 81025; 83690; 84703; 85025; 96361; 96374; 96375; 99284; J2270; J2405; J7030; Q9967

== ENCOUNTER 2020-05-26 12:51 | Outpatient (CLI) | payer MEDICAID ==
--- NOTE | 2020-05-26 15:44 | Vascular Lab Report ---
DUPLEX DOPPLER LOWER EXTREMITY VEINS, BILATERAL INDICATION: SWELLING OF LOWER LEG. TECHNIQUE: Duplex doppler imaging was performed through the veins of both lower extremities using ve nous compression and other maneuvers. COMPARISON: No relevant prior imaging study available. FINDINGS: Right Common femoral vein: Negative. Right Superficial femoral vein: Negative. Right Popliteal vein: Negative. Right Calf veins: Negative. Left Common femoral vein: Negative. Left Superficial femoral vein: Negative. Left Popliteal vein: Negative. Left Calf veins: Negative. Additional findings: None. IMPRESSION: No sonographic evidence for DVT in either lower extremity. Signer Name: Kaushik Gan Jr, MD Signed: 05/26/2020 3:39 PM Workstation Name: [id number]
== END 2020-05-26 12:52 | disposition home or self-care (01) ==
LOC: VAS 12:51
PROVIDERS: ATTEND Family Medicine
DX: M79.89 Other specified soft tissue disorders (principal)
CPT/HCPCS: 93970

== ENCOUNTER 2020-08-10 14:10 | Emergency (ER) | payer MEDICAID | END 2020-08-10 14:38 | disposition left against medical advice (07) | LOC: ED 14:10 | DX: R07.89 Other chest pain (principal); Z53.21 Procedure and treatment not carried out due to patient leaving prior to being seen by health care provider ==